=== PATIENT | female | born 1995 | race African-American/Black ===

== ENCOUNTER 2018-10-18 10:43 | Emergency (ER) | payer OTHER ==
[~2018-10-18] VITALS: Ht 180.3 cm; Wt 124.3 kg
[~2018-10-18 10:43] MED LIST: CEFTIN250 MG PO; GILPHEX TR TAB1 EACH PO
== END 2018-10-18 11:56 | disposition home or self-care (01) ==
LOC: ER 10:43
DX: L50.8 Other urticaria (principal)